=== PATIENT | female | born 1990 | race Caucasian/White ===

== ENCOUNTER 2022-08-09 20:58 | Emergency (ER) | payer OTHER, SELFPAY ==
[2022-08-09 21:02] VITALS: BP 180/86; RESP 30; TEMP 36.7; O2SAT 99; BMI 44.3
--- NOTE | 2022-08-09 21:10 | W.ED.ASTHMA ---
Documented by User: Walker Erwin MD 08/16/22 22:49 HPI - Asthma General: Chief Complaint: Asthma Stated Complaint: possible asthma attack Time Seen by Provider: 08/09/22 21:10 History of Present Illness: Ms. Everett is a 31-year-old female with significant past medical history of asthma who presents to the emergency department due to shortness of breath. She reports approximately 5 weeks now of worsening respiratory status despite 40 mg of oral steroids daily and treatments at home. Her current exacerbation has worsened over the past few hours and she has taken approximately 5 nebulizer treatments at home without significant relief. She notes palpitations and tachycardia in addition to breathless feeling. Denies specific infectious symptoms. Intensity symptoms is moderate to severe. Course has worsened. No other specific changes in health, exacerbating, or alleviating factors identified. Onset (ago): week(s) Severity: severe Associated symptoms: Reports no associated symptoms Asthma History: adult onset Review of Systems General: Reports: 10 or more systems reviewed and unremarkable except in HPI and below PFSH ED PFSH: Medical History (Updated 08/16/22 @ 22:47 by Walker Erwin MD) Asthma with acute exacerbation Social History (Updated 08/16/22 @ 22:47 by Walker Erwin MD) Smoking and tobacco status: never smoked Physical Exam Const: COMMON NORMALS: alert GENERAL APPEARANCE: cooperative, well developed and in distress HENMT: COMMON NORMALS: normocephalic and atraumatic HEAD & SCALP: normocephalic and atraumatic THROAT: posterior oropharynx normal Eye: COMMON NORMALS: conjunctivae normal CONJUNCTIVA: Yes conjunctivae normal SCLERA: sclerae normal Neck/C-Spine: COMMON NORMALS: supple GENERAL: Yes trachea midline Resp: EFFORT & INSPECTION: Yes tachypneic and Yes respiratory distress AUSCULTATION: wheezes and diminished lung sounds Cardio: COMMON NORMALS: regular rhythm RATE: tachycardic RHYTHM: regular rhythm GI: COMMON NORMALS: Soft to palpation PALPATION: Yes Soft to palpation and No Tenderness to palpation present (GI) PERCUSSION: normal to percussion Extremity: GENERAL: Yes normal exam except as noted and No edema Neuro: COMMON NORMALS: moves all extremities SENSORIUM/ORIENTATION: Yes alert and No Orientation impaired Psych: COMMON NORMALS: mental status grossly normal and Normal thought process present THOUGHT PROCESS: Normal thought process present Course Vital Signs: Vital signs: Vital Signs Temperature 98.0 F 08/09/22 21:02 Pulse Rate 98 08/09/22 23:44 Respiratory Rate 18 08/09/22 23:44 Blood Pressure 150/96 08/09/22 23:44 Pulse Oximetry 100 08/09/22 23:44 Oxygen Delivery Me thod 08/09/22 22:50 MDM - Asthma Medical Decision Making 31-year-old female presenting in respiratory distress. RT treatment and asthma exacerbation treatment ordered. Labs with psychosis which may be reactive or due to steroids, not evidence of dehydration on metabolic panel. Viral studies negative. Chest x-ray with no lobar consolidation or pneumothorax. Patient observed and did have return of some symptoms though not as intense. Repeat treatment ordered and patient care handed off to Dr. Muhammad pending reassessment for disposition. Patient presents with an asthma exacerbation she feels much improved here she is in no distress her wheezing is resolved I feel she is stable for discharge she is continue her steroids and follow-up with her junior graphic designer she understands agrees to plan. Medical Records I reviewed the patient's medical records. Lab Data I reviewed the patient's lab results. : 08/09/22 21:22 08/09/22 21:22 Radiology Impressions Chest X-Ray 08/09/22 21:15 IMPRESSION: No acute findings. Laboratory Results WBC 15.7 10^3/uL (4.0-10.0) H 08/09/22 21: RBC 4.79 10^6/uL (4.1-5.3) 08/09/22: Hgb 13.8 g/dL (11.5-15.3) 08/09/22: Hct 41.7 % (37.0-47.0) 08/09/22 21: MCV 87.1 fl (81-99) 08/09/22: MCH 28.8 pg (28.0-34.0) 08/09/22: MCHC 33.1 g/dL (30.0-36.0) 08/09/22: RDW 13.3 % (12.1-15.1) 08/09/22: Plt Count 305 10^3/cmm (130-400) 08/09/22: MPV 10.2 fL (7.4-10.4) 08/09/22 21: Neut % (Auto) 82.9 % 08/09/22 21: Lymph % (Auto) 9.9 % 08/09/22 21:22 [place] % (Auto) 4.2 % 08/09/22 21:22 Eos % (Auto) 0.0 % 08/09/22 21:22 Baso % (Auto) 0.4 % 08/09/22 21: Neut # (Auto) 12.99 10^3/uL (1.8-7.7) H 08/09/22 21: Lymph # (Auto) 1.6 10^3/uL (0.8-4.8) 08/09/22 21: [place] # (Auto) 0.7 10^3/uL (0.2-0.9) 08/09/22 21: Eos # (Auto) 0.0 10^3/uL (0.0-0.8) 08/09/22 21: Baso # (Auto) 0.1 10^3/uL (0.0-0.1) 08/09/22 21: Nucleated RBC % (auto) 0 % 08/09/22: Nucleated RBCs # 0.0 /100WBC 08/09/22 21: Sodium 138 mmol/L (136-145) 08/09/22 21: Potassium 3.9 mmol/L (3.5-5.1) 08/09/22: Chloride 102 mmol/L (98-107) 08/09/22: Carbon Dioxide 19 mmol/L (22-29) L 08/09/22 21: Anion Gap 20.9 (5-19) H 08/09/22 21: BUN 15 mg/dL (6-20) 08/09/22: Creatinine 0.8 mg/dL (0.5-0.9) 08/09/22: GFR Calculation 84.2 mL/min (90-130) L 08/09/22 21:22 Glucose 185 mg/dL (65-115) H 08/09/22 21: Calculated Osmolality 292 mOsm/kg (285-295) 08/09/22: Calcium 9.6 mg/dL (8.5-10.5) 08/09/22 21:22 Total Bilirubin 0.2 mg/dL (0.15-1.2) 08/09/22 21:22 AST 10 U/L (0-32) 08/09/22 21:22 ALT 24 U/L (0-33) 08/09/22 21:22 Alkaline Phosphatase 86 U/L (35-105) 08/09/22 21:22 Total Protein 7.1 g/dL (6.6-8.7) 08/09/22 21:22 Albumin 4.4 g/dL (3.5-5.2) 08/09/22 21:22 Globulin 2.7 g/dL (1.3-4.6) 08/09/22 21:22 Coronavirus 229E (PCR) Not detected (NOT DETECT) 08/09/22 21:35 SARS-CoV-2 (PCR) Not detected (NOT DETECT) 08/09/22 21:35 Discharge Plan Discharge Patient Disposition: Home Clinical Impression: Asthma with acute exacerbation Condition: Stable Prescriptions: New benzonatate 100 mg capsule 100 mg PO TID PRN (Reason: cough) Qty: 30 0RF Discharge Orders: Discharge ED (Routine); Ordered 08/09/22 Ordered By: Fermin Muhammad Discharge Diet: Usual diet Discharge Activity: Increase activity as tolerated Patient Instructions: Asthma Exacerbation - Adult Activity Restrictions/Additional Instructions: Thank you for visiting the emergency department. You were seen and evaluated for shortness of breath. The most likely cause of your symptoms is exacerbation of asthma. We are pleased that you had improvement in the emergency department. Please follow-up with your junior graphic designer. Return to the emergency department for worsening symptoms or anything else that you are concerned about a feel needs emergency department evaluation. Coding Level of Care Code ED Manager Marketing Communication for Chg Fwd Documented by User: Fermin Muhammad MD 08/09/22 23:34 HPI - Asthma General: Chief Complaint: Asthma Stated Complaint: possible asthma attack Time Seen by Provider: 08/09/22 21:10 PFSH ED PFSH: Medical History (Updated 08/16/22 @ 22:47 by Walker Erwin MD) Asthma with acute exacerbation Social History (Updated 08/16/22 @ 22:47 by Walker Erwin MD) Smoking and tobacco status: never smoked Course Vital Signs: Vital signs: Vital Signs Temperature 98.0 F 08/09/22 21:02 Pulse Rate 98 08/09/22 23:44 Respiratory Rate 18 08/09/22 23:44 Blood Pressure 150/96 08/09/22 23:44 Pulse Oximetry 100 08/09/22 23:44 Oxygen Delivery Me thod 08/09/22 22:50 MDM - Asthma Medical Decision Making Patient presents with an asthma exacerbation she feels much improved here she is in no distress her wheezing is resolved I feel she is stable for discharge she is continue her steroids and follow-up with her junior graphic designer she understands agrees to plan. Lab Data : 08/09/22 21:22 08/09/22 21:22 Radiology Impressions Chest X-Ray 08/09/22 21:15 IMPRESSION: No acute findings. Laboratory Results WBC 15.7 10^3/uL (4.0-10.0) H 08/09/22 21: RBC 4.79 10^6/uL (4.1-5.3) 08/09/22 21: Hgb 13.8 g/dL (11.5-15.3) 08/09/22 21: Hct 41.7 % (37.0-47.0) 08/09/22 21: MCV 87.1 fl (81-99) 08/09/22 21: MCH 28.8 pg (28.0-34.0) 08/09/22 21: MCHC 33.1 g/dL (30.0-36.0) 08/09/22: RDW 13.3 % (12.1-15.1) 08/09/22 21: Plt Count 305 10^3/cmm (130-400) 08/09/22 21: MPV 10.2 fL (7.4-10.4) 08/09/22: Neut % (Auto) 82.9 % 08/09/22 21: Lymph % (Auto) 9.9 % 08/09/22 21: [place] % (Auto) 4.2 % 08/09/22 21: Eos % (Auto) 0.0 % 08/09/22: Baso % (Auto) 0.4 % 08/09/22: Neut # (Auto) 12.99 10^3/uL (1.8-7.7) H 08/09/22 21: Lymph # (Auto) 1.6 10^3/uL (0.8-4.8) 08/09/22: [place] # (Auto) 0.7 10^3/uL (0.2-0.9) 08/09/22: Eos # (Auto) 0.0 10^3/uL (0.0-0.8) 08/09/22: Baso # (Auto) 0.1 10^3/uL (0.0-0.1) 08/09/22 21: Nucleated RBC % (auto) 0 % 08/09/22 21: Nucleated RBCs # 0.0 /100WBC 08/09/22 21: Sodium 138 mmol/L (136-145) 08/09/22 21: Potassium 3.9 mmol/L (3.5-5.1) 08/09/22: Chloride 102 mmol/L (98-107) 08/09/22: Carbon Dioxide 19 mmol/L (22-29) L 08/09/22: Anion Gap 20.9 (5-19) H 08/09/22 21: BUN 15 mg/dL (6-20) 08/09/22 21: Creatinine 0.8 mg/dL (0.5-0.9) 08/09/22 21: GFR Calculation 84.2 mL/min (90-130) L 08/09/22 21: Glucose 185 mg/dL (65-115) H 08/09/22 21: Calculated Osmolality 292 mOsm/kg (285-295) 08/09/22 21: Calcium 9.6 mg/dL (8.5-10.5) 08/09/22 21: Total Bilirubin 0.2 mg/dL (0.15-1.2) 08/09/22 21:22 AST 10 U/L (0-32) 08/09/22 21:22 ALT 24 U/L (0-33) 08/09/22 21:22 Alkaline Phosphatase 86 U/L (35-105) 08/09/22 21:22 Total Protein 7.1 g/dL (6.6-8.7) 08/09/22 21: Albumin 4.4 g/dL (3.5-5.2) 08/09/22 21: Globulin 2.7 g/dL (1.3-4.6) 08/09/22 21:22 Coronavirus 229E (PCR) Not detected (NOT DETECT) 08/09/22 21:35 SARS-CoV-2 (PCR) Not detected (NOT DETECT) 08/09/22 21:35 Discharge Plan Discharge Patient Disposition: Home Clinical Impression: Asthma with acute exacerbation Condition: Stable Prescriptions: New benzonatate 100 mg capsule 100 mg PO TID PRN (Reason: cough) Qty: 30 0RF Discharge Orders: Discharge ED (Routine); Ordered 08/09/22 Ordered By: Fermin Muhammad Discharge Diet: Usual diet Discharge Activity: Increase activity as tolerated Patient Instructions: Asthma Exacerbation - Adult Activity Restrictions/Additional Instructions: Thank you for visiting the emergency department. You were seen and evaluated for shortness of breath. The most likely cause of your symptoms is exacerbation of asthma. We are pleased that you had improvement in the emergency department. Please follow-up with your junior graphic designer. Return to the emergency department for worsening symptoms or anything else that you are concerned about a feel needs emergency department evaluation. Coding Level of Care Code ED Manager Marketing Communication for Kevin Iqbal
--- NOTE | 2022-08-09 21:15 | XRR_ITS ---
PROCEDURE INFORMATION: Exam: XR Chest Exam date and time: 08/09/2022 9:24 PM Age: 31 years old Clinical indication: Shortness of breath; Additional info: SOB TECHNIQUE: Imaging protocol: Radiologic exam of the chest. Views: 1 view. COMPARISON: No relevant prior studies available. FINDINGS: Lungs: Unremarkable. No consolidation. Pleural spaces: Unremarkable. No pleural effusion. No pneumothorax. Heart/Mediastinum: Unremarkable. No cardiomegaly. Bones/joints: Unremarkable. XR/XR chest 1V portable [id number] IMPRESSION: No acute findings.
[2022-08-09] MEDS: benzonatate 100 mg Capsule PO (21:32)
[2022-08-09] MEDS: sodium chloride 0.9% 1,000 ML 999 ML IV (21:32)
[2022-08-09] MEDS: magnesium sulfate premix 2 GM/50 ML PIGGYBACK IV (21:32)
[2022-08-09 21:33] VITALS: BP 182/92; PULSE 106; RESP 24; O2SAT 100
[2022-08-09] MEDS: ipratropium-albuterol 3 mL Neb INHALATION ×3 (21:35)
[2022-08-09 21:36] VITALS: PULSE 96; RESP 18; O2SAT 99
[2022-08-09 21:45] VITALS: PULSE 111
[2022-08-09 22:50] VITALS: BP 150/96; PULSE 100; PULSE 98; RESP 18; RESP 20; O2SAT 100
[2022-08-09] MEDS: levalbuterol 1.25 mg/3 mL Neb INHALATION (22:50)
[2022-08-09 23:11] LABS: Basophils # 0.1 10^3/uL (0.0-0.1); Basophils % 0.4 %; Hematocrit 41.7 % (37.0-47.0); Hemoglobin 13.8 g/dL (11.5-15.3); Lymphocytes # 1.6 10^3/uL (0.8-4.8); Lymphocytes % 9.9 %; Mean Corpuscular HGB Conc 33.1 g/dL (30.0-36.0); Mean Corpuscular Hemoglobin 28.8 pg (28.0-34.0); Mean Corpuscular Volume 87.1 fl (81-99); Mean Platelet Volume 10.2 fL (7.4-10.4); Monocytes # 0.7 10^3/uL (0.2-0.9); Monocytes % 4.2 %; Neutrophils # 12.99 10^3/uL (1.8-7.7); Neutrophils % 82.9 %; Nucleated Red Blood Cells % 0 %; Platelet Count 305 10^3/cmm (130-400); Red Blood Count 4.79 10^6/uL (4.1-5.3); Red Cell Distribution Width 13.3 % (12.1-15.1); White Blood Count 15.7 10^3/uL (4.0-10.0)
[2022-08-09 23:22] LABS: Adenovirus Not Detected (NOT DETECT); Chlamydia Pneumoniae Not Detected (NOT DETECT); Coronavirus 229E,HKU1,NL63,OC4 Not Detected (NOT DETECT); Human Metapneumovirus Not Detected (NOT DETECT); Human Rhinovirus/Enterovirus Not Detected (NOT DETECT); Influenza A Not Detected (NOT DETECT); Influenza A H1 Not Detected (NOT DETECT); Influenza A H1-2009 Not Detected (NOT DETECT); Influenza A H3 Not Detected (NOT DETECT); Influenza B Not Detected (NOT DETECT); Mycoplasma Pneumoniae Not Detected (NOT DETECT); Parainfluenza Virus Type 1 Not Detected (NOT DETECT); Parainfluenza Virus Type 2 Not Detected (NOT DETECT); Parainfluenza Virus Type 3 Not Detected (NOT DETECT); Parainfluenza Virus Type 4 Not Detected (NOT DETECT); Respiratory Syncytial Virus A Not Detected (NOT DETECT); Respiratory Syncytial Virus B Not Detected (NOT DETECT); SARS-COV-2 Not Detected (NOT DETECT)
[2022-08-09 23:27] LABS: Alanine Aminotransferase 24 U/L (0-33); Albumin Level 4.4 g/dL (3.5-5.2); Alkaline Phosphatase 86 U/L (35-105); Aspartate Amino Transferase 10 U/L (0-32); Blood Urea Nitrogen 15 mg/dL (6-20); Calcium 9.6 mg/dL (8.5-10.5); Carbon Dioxide 19 mmol/L (22-29); Chloride 102 mmol/L (98-107); Globulin 2.7 g/dL (1.3-4.6); Glomerular Filtration Rate 84.2 mL/min (90-130); Glucose 185 mg/dL (65-115); Osmolality Calculated 292 mOsm/kg (285-295); Sodium 138 mmol/L (136-145); Total Bilirubin 0.2 mg/dL (0.15-1.2); Total Protein 7.1 g/dL (6.6-8.7)
[2022-08-09 23:36] LABS: Anion Gap 20.9 (5-19); Potassium 3.9 mmol/L (3.5-5.1)
[2022-08-09 23:44] VITALS: BP 150/96; PULSE 98; RESP 18; O2SAT 100
== END 2022-08-09 23:47 | disposition home or self-care (01) ==
PROVIDERS: Emergency Medicine; Emergency Provider Emergency Medicine
DX: J45.901 Unspecified asthma with (acute) exacerbation (principal); Z20.822 Contact with and (suspected) exposure to COVID-19
CPT/HCPCS: 71045; 80053; 85025; 87635; 94640; 96365; 96375; 99284; J2930; J3475; J7030; J7614

== ENCOUNTER 2022-09-19 18:37 | Emergency (ER) | payer OTHER, SELFPAY ==
--- NOTE | 2022-09-19 18:39 | XRR_ITS ---
PROCEDURE INFORMATION: Exam: XR Chest Exam date and time: 09/19/2022 8:40 PM Age: 31 years old Clinical indication: Pain; Chest pressure; Additional info: Cp TECHNIQUE: Imaging protocol: Radiologic exam of the chest. Views: 1 view. COMPARISON: CR (CHEST, ) 08/09/2022 9:24 PM FINDINGS: Lungs: Lungs are clear bilaterally. Pleural spaces: No pleural effusion. No pneumothorax. Heart/Mediastinum: The cardiac silhouette and mediastinal contours are unremarkable. Bones/joints: Unremarkable for age. XR/XR chest 1V portable [id number] IMPRESSION: Negative chest radiograph.
[2022-09-19 18:59] VITALS: BP 180/131; PULSE 137; RESP 16; TEMP 36.5; O2SAT 100
--- NOTE | 2022-09-19 19:03 | ECG_ITS ---
[facility] Test Date: 2022-09-19 Pat Name: Meenu Everett Department: Room: Gender: Female Java Lead Architect: : 1990 Requested By: Fermin Muhammad Order Number: [id number] Terrell MD: Yuli Benavides M.D. Measurements Intervals [place] Rate: 131 P: 51 WA: 128 QRS: 60 QRSD: 93 T: 42 QT: 314 QTc: 464 Interpretive Statements SINUS TACHYCARDIA MODERATE ST DEPRESSION [0.05+ mV ST DEPRESSION] No previous ECG available for comparison Electronically Signed On 09-21-2022 13:42:05 MANAGER MUTUAL FUND by Yuli Benavides M.D. [id number]
[2022-09-19 19:34] VITALS: BP 182/97; PULSE 123; RESP 18; O2SAT 99
[2022-09-19 19:45] VITALS: BP 165/111; PULSE 112; RESP 18; O2SAT 97
[2022-09-19] MEDS: sodium chloride 0.9% 1,000 ML 999 ML IV (19:56)
[2022-09-19] MEDS: labetalol 5 mg/mL SDV 20mL 10 MG IVP (19:56)
[2022-09-19] MEDS: ondansetron 2 mg/ML SDV 2 mL 4 MG IVP (19:56)
[2022-09-19] MEDS: morphine 4 mg/mL SDV 1 mL IVP (19:56)
--- NOTE | 2022-09-19 19:57 | ECG_ITS ---
[facility] Test Date: 2022-09-19 Pat Name: Meenu Everett Department: Room: Gender: Female Territory Manager General Sales: : 1990 Requested By: Fermin Muhammad Order Number: [id number] Terrell MD: Yuli Benavides M.D. Measurements Intervals [place] Rate: 102 P: 42 MS: 156 QRS: 29 QRSD: 95 T: 26 QT: 323 QTc: 423 Interpretive Statements SINUS TACHYCARDIA ABNORMAL RHYTHM ECG No previous ECG available for comparison Electronically Signed On 09-21-2022 13:42:23 PRODUCTION INSPECTOR by Yuli Benavides M.D. [id number]
[2022-09-19 20:00] LABS: Basophils # 0.1 10^3/uL (0.0-0.1); Basophils % 0.5 %; Eosinophils # 0.1 10^3/uL (0.0-0.8); Eosinophils % 0.7 %; Hematocrit 39.5 % (37.0-47.0); Hemoglobin 13.4 g/dL (11.5-15.3); Lymphocytes # 2.9 10^3/uL (0.8-4.8); Lymphocytes % 27.8 %; Mean Corpuscular HGB Conc 33.9 g/dL (30.0-36.0); Mean Corpuscular Volume 85.5 fl (81-99); Mean Platelet Volume 9.8 fL (7.4-10.4); Monocytes # 0.6 10^3/uL (0.2-0.9); Monocytes % 5.5 %; Neutrophils # 6.76 10^3/uL (1.8-7.7); Neutrophils % 64.5 %; Nucleated Red Blood Cells % 0 %; Platelet Count 318 10^3/cmm (130-400); Red Blood Count 4.62 10^6/uL (4.1-5.3); Red Cell Distribution Width 14.2 % (12.1-15.1); White Blood Count 10.5 10^3/uL (4.0-10.0)
--- NOTE | 2022-09-19 20:07 | ED_ITS ---
HPI - Chest Pain General: Chief Complaint: Chest Pain Stated Complaint: Irregular HR, Chest pain, High bP Time Seen by Provider: 09/19/22 19:30 Source: patient Mode of arrival: ambulatory Limitations: no limitations History of Present Illness: 31-year-old female states she had COVID 2 weeks ago she had been on steroids states that over the last 2 days she has been having some chest pains along with shortness of breath and tachycardic. States not uncommon to have a tachycardia after steroids she does have a history of asthma states that her pain is a pressure type pain in the center of her chest. She is in no distress here. She is hypertensive as well. No vomiting no diarrhea Associated symptoms: Reports dyspnea and palpitations; Deny abdominal pain, fever(s), nausea or vomiting Review of Systems Const: Denies: fever(s), chills, body aches or change in appetite Eyes: Denies: blurry vision or eye discomfort ENMT: Denies: throat pain or dental pain Card: Reports: chest pain and palpitations Resp: Reports: dyspnea GI: Denies: abdominal pain, nausea, vomiting or diarrhea : Denies: dysuria Musc: Denies: neck pain or back pain Skin/Breast: Denies: rash Neuro: Denies: headache(s) Psych: Denies: depression [place]/Lymph: Denies: easy bruising All/Imm: Denies: urticaria PFSH ED PFSH: Medical History Asthma with acute exacerbation Social History Smoking and tobacco status: never smoked Physical Exam Const: COMMON NORMALS: no acute distress, patient oriented x3 and healthy appearing HENMT: COMMON NORMALS: normocephalic and atraumatic HEAD & SCALP: normoce phalic and atraumatic Eye: COMMON NORMALS: Equal, round and reactive pupils present and EOMs intact bilaterally PUPIL: Yes Equal, round and reactive pupils present Neck/C-Spine: COMMON NORMALS: full ROM and supple Chest: COMMONS NORMALS: normal inspection of the chest and normal palpation of entire chest wall Resp: COMMON NORMALS: normal respiratory effort, No retractions, No use of accessory muscles and clear to auscultation bilaterally AUSCULTATION: clear to auscultation bilaterally Cardio: COMMON NORMALS: regular rhythm and No murmurs present (Cardio) RATE: bradycardic RHYTHM: regular rhythm GI: COMMON NORMALS: Normal to inspection, nondistended, normoactive bowel sounds present, Soft to palpation, non-tender and no masses PALPATION: Yes Soft to palpation Extremity: COMMON NORMALS: normal to inspection and full ROM Neuro: COMMON NORMALS: patient oriented x3, moves all extremities and no focal motor deficits Psych: COMMON NORMALS: mental status grossly normal, Normal thought process present and cooperative THOUGHT PROCESS: Normal thought process present Skin: COMMON NORMALS: no rashes or lesions noted and no wounds GENERAL SKIN EXAM: no rashes or lesions noted Course Vital Signs: Vital signs: Vital Signs Temperature 97.7 F 09/19/22 18:59 Pulse Rate 112 H 09/19/22 19:45 Respiratory Rate 18 09/19/22 19:45 Blood Pressure 165/111 09/19/22 19:45 Pulse Oximetry 97 09/19/22 19:45 Oxygen Delivery Me thod 09/19/22 19:34 MDM - Chest Pain Medical Decision Making Patient presents here with chest pain she does have hypertension as well could be post COVID her D-dimer is negative she has no signs of PE her troponin is normal patient stable for discharge she is to follow-up with PCP and return if worsening. Lab Data 09/19/22 19:55 09/19/22 19:55 Radiology Impressions Chest X-Ray 09/19/22 18:39 IMPRESSION: Negative chest radiograph. Laboratory Results WBC 10.5 10^3/uL (4.0-10.0) H 09/19/22 19:55 RBC 4.62 10^6/uL (4.1-5.3) 09/19/22 19:55 Hgb 13.4 g/dL (11.5-15.3) 09/19/22 19:55 Hct 39.5 % (37.0-47.0) 09/19/22 19:55 MCV 85.5 fl (81-99) 09/19/22 19:55 MCH 29.0 pg (28.0-34.0) 09/19/22 19:55 MCHC 33.9 g/dL (30.0-36.0) 09/19/22 19:55 RDW 14.2 % (12.1-15.1) 09/19/22 19:55 Plt Count 318 10^3/cmm (130-400) 09/19/22 19:55 MPV 9.8 fL (7.4-10.4) 09/19/22 19:55 Neut % (Auto) 64.5 % 09/19/22 19:55 Lymph % (Auto) 27.8 % 09/19/22 19:55 [place] % (Auto) 5.5 % 09/19/22 19:55 Eos % (Auto) 0.7 % 09/19/22 19:55 Baso % (Auto) 0.5 % 09/19/22 19:55 Neut # (Auto) 6.76 10^3/uL (1.8-7.7) 09/19/22 19:55 Lymph # (Auto) 2.9 10^3/uL (0.8-4.8) 09/19/22 19:55 [place] # (Auto) 0.6 10^3/uL (0.2-0.9) 09/19/22 19:55 Eos # (Auto) 0.1 10^3/uL (0.0-0.8) 09/19/22 19:55 Baso # (Auto) 0.1 10^3/uL (0.0-0.1) 09/19/22 19:55 Nucleated RBC % (auto) 0 % 09/19/22 19:55 Nucleated RBCs # 0.0 /100WBC 09/19/22 19:55 D-Dimer <= 0.27 ug/mIFEU (0-0.59) 09/19/22 19:55 Sodium 131 mmol/L (136-145) L 09/19/22 19:55 Potassium 3.6 mmol/L (3.5-5.1) 09/19/22 19:55 Chloride 93 mmol/L (98-107) L 09/19/22 19:55 Carbon Dioxide 25 mmol/L (22-29) 09/19/22 19:55 Anion Gap 16.6 (5-19) 09/19/22 19:55 BUN 12 mg/dL (6-20) 09/19/22 19:55 Creatinine 0.9 mg/dL (0.5-0.9) 09/19/22 19:55 GFR Calculation 73.5 mL/min (90-130) L 09/19/22 19:55 Glucose 136 mg/dL (65-115) H 09/19/22 19:55 Calculated Osmolality 274 mOsm/kg (285-295) L 09/19/22 19:55 Calcium 9.5 mg/dL (8.5-10.5) 09/19/22 19:55 Total Bilirubin 0.3 mg/dL (0.15-1.2) 09/19/22 19:55 AST 14 U/L (0-32) 09/19/22 19:55 ALT 21 U/L (0-33) 09/19/22 19:55 Alkaline Phosphatase 87 U/L (35-105) 09/19/22 19:55 Troponin T Baseline 6 ng/L (0-10) 09/19/22 19:55 NT-Pro-B Natriuret Pep 5 pg/mL (0-125) 09/19/22 19:55 Total Protein 6.9 g/dL (6.6-8.7) 09/19/22 19:55 Albumin 4.4 g/dL (3.5-5.2) 09/19/22 19:55 Globulin 2.5 g/dL (1.3-4.6) 09/19/22 19:55 EKG Data EKG 1: I personally reviewed and interpreted this EKG as follows: EKG interpretation date: 09/19/22 EKG interpretation time: 19:57 Interpretation: sinus tach hr [address] or t wave abnormalities qrs 95 qtc 382 Discharge Plan Discharge Patient Disposition: Home Clinical Impression: Chest pain, Hypertension Condition: Stable Prescriptions: No Action benzonatate 100 mg capsule 100 mg PO TID PRN (Reason: cough) Qty: 30 0RF Discharge Orders: Discharge ED (Routine); Ordered 09/19/22 Ordered By: Fermin Muhammad Referrals: Berta Simon APRN [Primary Care Provider] - Discharge Diet: Advance as tolerated Discharge Activity: Resume usual activity Patient Instructions: Chest Pain (ED) Coding Level of Care Code ED Physician Practice Consultant for Chg Fwd Exam Comprehensive
[2022-09-19 20:19] LABS: D Dimer <= 0.27 ug/mIFEU (0-0.59)
[2022-09-19 20:23] LABS: Troponin(5th) Baseline 6 ng/L (0-10)
[2022-09-19 20:57] LABS: Alanine Aminotransferase 21 U/L (0-33); Albumin Level 4.4 g/dL (3.5-5.2); Alkaline Phosphatase 87 U/L (35-105); Anion Gap 16.6 (5-19); Aspartate Amino Transferase 14 U/L (0-32); Blood Urea Nitrogen 12 mg/dL (6-20); Calcium 9.5 mg/dL (8.5-10.5); Carbon Dioxide 25 mmol/L (22-29); Chloride 93 mmol/L (98-107); Creatinine Clr Calc Pharmacy 137.1599; Globulin 2.5 g/dL (1.3-4.6); Glomerular Filtration Rate 73.5 mL/min (90-130); Glucose 136 mg/dL (65-115); NT Pro B Type Natriuretic Pept 5 pg/mL (0-125); Osmolality Calculated 274 mOsm/kg (285-295); Potassium 3.6 mmol/L (3.5-5.1); Sodium 131 mmol/L (136-145); Total Bilirubin 0.3 mg/dL (0.15-1.2); Total Protein 6.9 g/dL (6.6-8.7)
[2022-09-19 21:16] VITALS: BP 143/105; RESP 18; O2SAT 99
== END 2022-09-19 21:16 | disposition home or self-care (01) ==
PROVIDERS: Emergency Provider Emergency Medicine; PCP Nurse Practitioner Family
DX: R07.9 Chest pain, unspecified (principal); I10 Essential (primary) hypertension
CPT/HCPCS: 71045; 80053; 83880; 84484; 85025; 85378; 93005; 96374; 96375; 99285; J2270; J2405; J3490; J7030

== ENCOUNTER 2024-02-03 19:56 | Emergency (ER) | payer OTHER, SELFPAY ==
[2024-02-03 20:00] VITALS: BP 144/87; PULSE 91; RESP 18; TEMP 36.6; O2SAT 100; BMI 30.7
[2024-02-03 20:22] LABS: Basophils % 0.7 %; Eosinophils # 0.1 10^3/uL (0.0-0.8); Eosinophils % 1.1 %; Hematocrit 36.1 % (36-47); Lymphocytes # 2.2 10^3/uL (0.8-4.8); Lymphocytes % 35.5 %; Mean Corpuscular HGB Conc 33.2 g/dL (30-55); Mean Corpuscular Hemoglobin 29.1 pg (27-33); Mean Corpuscular Volume 87.6 fl (85-98); Mean Platelet Volume 11.5 fL (7.4-10.4); Monocytes # 0.3 10^3/uL (0.2-0.9); Monocytes % 5.4 %; Neutrophils # 3.51 10^3/uL (1.8-7.7); Neutrophils % 57.1 %; Nucleated Red Blood Cells % 0 %; Platelet Count 211 10^3/cmm (157-399); Red Blood Count 4.12 10^6/uL (3.85-5.65); Red Cell Distribution Width 13.8 % (12.1-15.1); White Blood Count 6.14 10^3/uL (3.29-11.43)
[2024-02-03 20:45] LABS: Add Urine Microscopic? YES; Bilirubin Urine Neg (Negative); Blood Urine 3+ (Negative); Glucose Urine UA Norm (Normal); Ketones Urine Negative (Negative); Leukocyte Esterase Urine Negative (Negative); Nitrate Urine Negative (Negative); Protein Urine Trace (Negative); Specific Gravity, Urine 1.005 (1.005-1.030); Urine Appearance Clear (CLEAR); Urine Color Yellow (Yellow); Urobilinogen Urine Neg (Negative); pH Urine 7 (5-7)
[2024-02-03 20:46] LABS: Add Urine Culture? Yes; Bacteria Urine TRACE /hpf; RBC Urine 40-50 /hpf (0-2)
--- NOTE | 2024-02-03 20:49 | W.ED.FEMALGU ---
HPI - Female Genitourinary General: Chief complaint: Vaginal Bleeding Stated complaint: Vag bleeding, 6 weeks preg Time Seen by Provider: 02/03/24 20:11 History of Present Illness: Patient presents to the ER with painless bright red vaginal bleeding. Patient is approximately 6 weeks at this moment. Patient is with 1 miscarriage. Patient says she saturated 1 panty liner and had to tire changer aircraft to a regular pad but does not feel this is as heavy as her. Menstrual bleeding as that is heavy. Patient has had a D&C in the past and thought she was infertile for the last 6 years prior to the current . Related Data: : 4 Review of Systems General: Reports: 10 or more systems reviewed and unremarkable except in HPI and below PFSH ED PFSH: Medical History Asthma with acute exacerbation Social History Smoking and tobacco/nicotine status: never used tobacco/nicotine Female Reproductive History: : 4 Physical Exam Const: COMMON NORMALS: no acute distress, average body habitus, patient oriented x3, no limitations, healthy appearing, alert and well nourished HENMT: COMMON NORMALS: normocephalic, atraumatic, hearing grossly normal bilaterally, external ears normal, Normal external nose present, moist oral mucous membranes and oropharynx normal HEAD & SCALP: normocephalic and atraumatic NOSE: Normal external nose present EXTERNAL EAR: Yes external ears normal Neck/C-Spine: COMMON NORMALS: no JVD Chest: COMMONS NORMALS: normal inspection of the chest and normal palpation of entire chest wall Resp: COMMON NORMALS: normal respiratory effort, No retractions, No use of accessory muscles and clear to auscultation bilaterally AUSCULTATION: clear to auscultation bilaterally Cardio: COMMON NORMALS: no JVD, regular rate, regular rhythm, S1 normal heart sound present, S2 normal heart sound present, No gallops present (Cardio), No clicks present (Cardio), No murmurs present (Cardio) and No rub (Cardio) RATE: regular rate RHYTHM: regular rhythm HEART SOUNDS: S1 normal heart sound present and S2 normal heart sound present GI: COMMON NORMALS: Normal to inspection, nondistended, normoactive bowel sounds present, Soft to palpation, non-tender, No hepatosplenomegaly present and no masses PALPATION: Yes Soft to palpation and Yes No hepatosplenomegaly present Neuro: COMMON NORMALS: patient oriented x3 SENSORIUM/ORIENTATION: Yes alert Course Vital Signs: Vital signs: Vital Signs Temperature 97.8 F 02/03/24 20:00 Pulse Rate 91 02/03/24 20:00 Respiratory Rate 18 02/03/24 20:00 Blood Pressure 144/87 02/03/24 20:00 Pulse Oximetry 100 02/03/24 20:00 MDM - Female Medical Decision Making Patient lab work as well as ultrasound. Ultrasound showed fetus for 5 weeks and 6 days with a subchorionic hematoma these results was discussed with the patient. Patient be discharged from the ER to follow-up with her TRAVELING INVENTORY ASSOCIATE with suggested repeat ultrasound within next 1 to 2 weeks or sooner if more bleeding happens. Differential Diagnosis Unlikely abdominal pain, acute appendicitis, calculus of kidney, constipation, diverticulitis, endometriosis, gastroenteritis, pancreatitis or small bowel obstruction Medical Records I reviewed the patient's medical records. Lab Data I reviewed the patient's lab results. 02/03/24 20:16 02/03/24 20:16 Radiology Impressions Obstetrics Ultrasound 02/03/24 21:16 IMPRESSION: 1. Single living intrauterine fetus, 5 weeks, 6 days estimated age. 2. Probable subchorionic hematoma adjacent to the gestational sac, measuring 28 x 16 x 27 mm. 3. Suspect a small uterine fibroid, details above. 4. Small complex cyst in the right ovary, measuring 21 x 18 mm, possibly corpus luteum. 5. Other details discussed above. Laboratory Results WBC 6.14 10^3/uL (3.29-11.43) 02/03/24 20:16 RBC 4.12 10^6/uL (3.85-5.65) 02/03/24 20:16 Hgb 12.00 g/dL (11.27-16.99) 02/03/24 20:16 Hct 36.1 % (36-47) 02/03/24 20:16 MCV 87.6 fl (85-98) 02/03/24 20:16 MCH 29.1 pg (27-33) 02/03/24 20:16 MCHC 33.2 g/dL (30-55) 02/03/24 20:16 RDW 13.8 % (12.1-15.1) 02/03/24 20:16 Plt Count 211 10^3/cmm (157-399) 02/03/24 20:16 MPV 11.5 fL (7.4-10.4) H 02/03/24 20:16 Neut % (Auto) 57.1 % 02/03/24 20:16 Lymph % (Auto) 35.5 % 02/03/24 20:16 [place] % (Auto) 5.4 % 02/03/24 20:16 Eos % (Auto) 1.1 % 02/03/24 20:16 Baso % (Auto) 0.7 % 02/03/24 20:16 Neut # (Auto) 3.51 10^3/uL (1.8-7.7) 02/03/24 20:16 Lymph # (Auto) 2.2 10^3/uL (0.8-4.8) 02/03/24 20:16 [place] # (Auto) 0.3 10^3/uL (0.2-0.9) 02/03/24 20:16 Eos # (Auto) 0.1 10^3/uL (0.0-0.8) 02/03/24 20:16 Baso # (Auto) 0.0 10^3/uL (0.0-0.1) 02/03/24 20:16 Nucleated RBC % (auto) 0 % 02/03/24 20:16 Nucleated RBCs # 0.0 /100WBC 02/03/24 20:16 Sodium 142 mmol/L (136-145) 02/03/24 20:16 Potassium 3.1 mmol/L (3.5-5.1) L 02/03/24 20:16 Chloride 108 mmol/L (98-107) H 02/03/24 20:16 Carbon Dioxide 23 mmol/L (22-29) 02/03/24 20:16 Anion Gap 14.1 (5-19) 02/03/24 20:16 BUN 8 mg/dL (6-20) 02/03/24 20:16 Creatinine 0.6 mg/dL (0.5-0.9) 02/03/24 20:16 GFR Calculation 115.9 mL/min (90-130) 02/03/24 20:16 Glucose 128 mg/dL (65-115) H 02/03/24 20:16 Calculated Osmolality 294 mOsm/kg (285-295) 02/03/24 20:16 Calcium 9.2 mg/dL (8.5-10.5) 02/03/24 20:16 Total Bilirubin 0.3 mg/dL (0.15-1.2) 02/03/24 20:16 AST 12 U/L (0-32) 02/03/24 20:16 ALT 9 U/L (0-33) 02/03/24 20:16 Alkaline Phosphatase 107 U/L (35-105) H 02/03/24 20:16 Total Protein 6.4 g/dL (6.6-8.7) L 02/03/24 20:16 Albumin 4.2 g/dL (3.5-5.2) 02/03/24 20:16 Globulin 2.2 g/dL (1.3-4.6) 02/03/24 20:16 Ser , Semi-Qnt 80273.00 mIU/mL 02/03/24 20:16 Urine Color Yellow (Yellow) 02/03/24 20:30 Urine Appearance Clear (CLEAR) 02/03/24 20:30 Urine pH 7 (5-7) 02/03/24 20:30 Ur Specific [place] 1.005 (1.005-1.030) 02/03/24 20:30 Urine Protein Trace (Negative) 02/03/24 20:30 Urine Glucose (UA) Norm (Normal) 02/03/24 20:30 Urine Ketones Negative (Negative) 02/03/24 20: Urine Blood 3+ (Negative) H 02/03/24 20:30 Urine Nitrate Negative (Negative) 02/03/24 20:30 Urine Bilirubin Neg (Negative) 02/03/24 20:30 Urine Urobilinogen Neg mg/dL (Negative) 02/03/24 20:30 Ur Leukocyte Esterase Negative (Negative) 02/03/24 20:30 Urine RBC 40-50 /hpf (0-2) H 02/03/24 20:30 Urine WBC 5-10 /hpf (0-5) H 02/03/24 20:30 Ur Squamous Epith Cells 5-10 /hpf (0-5) H 02/03/24 20:30 Amorphous Sediment Not Reportable 02/03/24 20:30 Urine Bacteria Trace /hpf (NONE) 02/03/24 20:30 Blood Type B Positive 02/03/24 20:16 Rho(D) Type Rh positive 02/03/24 20:16 Antibody Screen Negative 02/03/24 20:16 All radiology interpretation(s) finalized by discharge Discharge Plan Discharge Patient Disposition: Home Clinical Impression: Hemorrhage affecting in first trimester Clinical Impression: (Ruled Out): Missed Condition: Stable Prescriptions: No Action benzonatate 100 mg capsule 100 mg PO TID PRN (Reason: cough) Qty: 30 0RF Discharge Orders: Discharge ED (Routine); Ordered 02/03/24 Ordered By: Rhett Conrad Patient Instructions: (ED) Activity Restrictions/Additional Instructions: He had lab work and ultrasound. Your ultrasound showed intrauterine with gestational age of approximately 5 weeks and 6 days. But it also showed a subchorionic hemorrhage. Please follow-up with your TRAVELING INVENTORY ASSOCIATE within next 1 to 2 weeks for reevaluation of this which may include ultrasound. If bleeding continues or worsens please feel free to return to the ER. Coding Level of Care Code ED Roller Print Tender for Kevin Iqbal
[2024-02-03 20:52] LABS: Alanine Aminotransferase 9 U/L (0-33); Albumin Level 4.2 g/dL (3.5-5.2); Alkaline Phosphatase 107 U/L (35-105); Anion Gap 14.1 (5-19); Aspartate Amino Transferase 12 U/L (0-32); Blood Urea Nitrogen 8 mg/dL (6-20); Calcium 9.2 mg/dL (8.5-10.5); Carbon Dioxide 23 mmol/L (22-29); Chloride 108 mmol/L (98-107); Creatinine Clr Calc Pharmacy 159.3546; Globulin 2.2 g/dL (1.3-4.6); Glomerular Filtration Rate 115.9 mL/min (90-130); Glucose 128 mg/dL (65-115); Osmolality Calculated 294 mOsm/kg (285-295); Potassium 3.1 mmol/L (3.5-5.1); Sodium 142 mmol/L (136-145); Total Bilirubin 0.3 mg/dL (0.15-1.2); Total Protein 6.4 g/dL (6.6-8.7)
--- NOTE | 2024-02-03 21:16 | USR_ITS ---
PROCEDURE INFORMATION: Exam: US First Trimester, Transabdominal and US , Transvaginal Exam date and time: 02/03/2024 10:16 PM Age: 33 years old Clinical indication: Lmp or gestational age (in weeks): 5w6d; Antepartum complications; Bleeding; ; Prior surgery; Surgery date: 6+ months; Surgery type: D&c 2018; Additional info: Approx 6 week gest, vaginal bleeding LABS AND CLINICAL REPORTS: Choriogonadotropin in serum (Serum HCG): 32063 mIU/mL Last menstrual period start date: 12/20/2023 Gestational age (Established): 6 w 2 d Estimated due date (Established): 09/26/2024 TECHNIQUE: Imaging protocol: Real-time transabdominal obstetrical ultrasound of the maternal pelvis and a first trimester , less than 14 weeks 0 days, with image documentation. Transvaginal imaging was used for better evaluation of the fetus, adnexa, and/or cervix. COMPARISON: No relevant prior studies available. FINDINGS: Single living intrauterine fetus. [address] rump length of 2.7 mm estimates age at 5 weeks, 6 days. heart activity documented by the technologist, 96 bpm. This is slightly slower than expected, but still may be normal at this early stage of gestation. Follow-up may be useful, as clinically directed. Amniotic fluid appears adequate for gestation. Suspect a 15 x 11 x 14 mm subserosal fibroid extending from the anterior left uterus. Probable subchorionic hematoma adjacent to the gestational sac, measuring 28 x 16 x 27 mm. An additional uterine fibroid is probably less likely. Small complex cyst in the right ovary, measuring 21 x 18 mm, possibly corpus luteum. Maternal ovaries/adnexa otherwise appear essentially unremarkable. Blood flow detected in each ovary. The urinary bladder was not completely evaluated/imaged at this time. Endovaginal scanning provided better visualization/evaluation of the gestational sac and contents, and adnexal regions, as discussed above. US/US OB <=14 wk fetus w transvag IMPRESSION: 1. Single living intrauterine fetus, 5 weeks, 6 days estimated age. 2. Probable subchorionic hematoma adjacent to the gestational sac, measuring 28 x 16 x 27 mm. 3. Suspect a small uterine fibroid, details above. 4. Small complex cyst in the right ovary, measuring 21 x 18 mm, possibly corpus luteum. 5. Other details discussed above.
== END 2024-02-03 23:57 | disposition home or self-care (01) ==
PROVIDERS: Emergency Provider Emergency Medicine
DX: O20.9 Hemorrhage in early pregnancy, unspecified (principal); Z3A.01 Less than 8 weeks gestation of pregnancy
CPT/HCPCS: 36415; 76801; 76817; 80053; 81001; 84702; 85025; 86850; 86900; 87086; 99284

== ENCOUNTER → 2024-02-09 07:59 | Outpatient (BNVA) | payer OTHER, SELFPAY | PROVIDERS: Visit Provider Nurse Practitioner Women's Health | DX: N92.6 Irregular menstruation, unspecified (principal); O20.9 Hemorrhage in early pregnancy, unspecified | CPT/HCPCS: 81025; 84702; 85025 ==

== ENCOUNTER → 2024-02-10 07:54 | Outpatient (BNVA) | payer OTHER, SELFPAY | PROVIDERS: Visit Provider Nurse Practitioner Women's Health | DX: Z36.87 Encounter for antenatal screening for uncertain dates (principal) | CPT/HCPCS: 76817 ==

== ENCOUNTER → 2024-02-15 13:29 | Outpatient (BNVA) | payer OTHER, SELFPAY | PROVIDERS: Visit Provider Nurse Practitioner Women's Health | DX: O03.9 Complete or unspecified spontaneous abortion without complication (principal) | CPT/HCPCS: 76817; 84702 ==

== ENCOUNTER → 2024-02-22 13:26 | Outpatient (BNVA) | payer OTHER, SELFPAY | PROVIDERS: Visit Provider Nurse Practitioner Women's Health | DX: O20.9 Hemorrhage in early pregnancy, unspecified (principal) | CPT/HCPCS: 84702 ==

== ENCOUNTER 2024-02-25 14:56 | Emergency (ER) | payer OTHER, SELFPAY ==
[2024-02-25 15:04] VITALS: BP 135/87; PULSE 72; RESP 16; TEMP 36.6; O2SAT 100; BMI 30.4
[2024-02-25 16:26] LABS: Basophils % 0.7 %; Eosinophils # 0.1 10^3/uL (0.0-0.8); Eosinophils % 0.9 %; Hematocrit 34.9 % (36-47); Lymphocytes # 2.1 10^3/uL (0.8-4.8); Lymphocytes % 36.2 %; Mean Corpuscular HGB Conc 31.8 g/dL (30-55); Mean Corpuscular Hemoglobin 29.2 pg (27-33); Mean Corpuscular Volume 91.8 fl (85-98); Mean Platelet Volume 11.7 fL (7.4-10.4); Monocytes # 0.3 10^3/uL (0.2-0.9); Monocytes % 5.1 %; Neutrophils # 3.22 10^3/uL (1.8-7.7); Neutrophils % 56.9 %; Nucleated Red Blood Cells % 0 %; Platelet Count 202 10^3/cmm (157-399); Red Cell Distribution Width 12.9 % (12.1-15.1); White Blood Count 5.66 10^3/uL (3.29-11.43)
[2024-02-25 17:13] LABS: Alanine Aminotransferase 7 U/L (0-33); Albumin Level 3.8 g/dL (3.5-5.2); Alkaline Phosphatase 95 U/L (35-105); Anion Gap 12.5 (5-19); Aspartate Amino Transferase 10 U/L (0-32); Blood Urea Nitrogen 9 mg/dL (6-20); Calcium 8.4 mg/dL (8.5-10.5); Carbon Dioxide 23 mmol/L (22-29); Chloride 111 mmol/L (98-107); Creatinine Clr Calc Pharmacy 190.5034; Globulin 2.4 g/dL (1.3-4.6); Glucose 93 mg/dL (65-115); Osmolality Calculated 294 mOsm/kg (285-295); Potassium 3.5 mmol/L (3.5-5.1); Sodium 143 mmol/L (136-145); Total Bilirubin 0.2 mg/dL (0.15-1.2); Total Protein 6.2 g/dL (6.6-8.7)
--- NOTE | 2024-02-25 19:01 | ED_ITS ---
HPI - Female Genitourinary 2 General: Chief complaint: Vaginal Bleeding Stated complaint: heavy bleeding sent by [facility] Time Seen by Provider: 02/25/24 18:48 History of Present Illness: 33-year-old female who presents the [facility] room from [facility]. She had a miscarriage about 10 days ago and has had continued vaginal bleeding. She has a history of a gastric bypass and so is usually anemic. She has had ultrasounds and has been receiving care for the miscarriage from [facility] but given her level of bleeding that were frayed she might be anemic to the point of needing transfusion. She is having 1 pad an hour bleeding. She is felt somewhat lightheaded and dizzy at times. No abdominal pain. No fevers. She has had ultrasounds at the clinic. Date of Last Menstrual Period: 12/21/23 Review of Systems 2 Narrative: Constitutional symptoms: Negative except as documented in HPI. Skin symptoms: Negative except as documented in HPI. Eye symptoms: Negative except as documented in HPI. ENMT symptoms: Negative except as documented in HPI. Respiratory symptoms: Negative except as documented in HPI. Cardiovascular symptoms: Negative except as documented in HPI. Gastrointestinal symptoms: Negative except as documented in HPI. Genitourinary symptoms: Negative except as documented in HPI. Musculoskeletal symptoms: Negative except as documented in HPI. Neurologic symptoms: Negative except as documented in HPI. Psychiatric symptoms: Negative except as documented in HPI. Endocrine symptoms: Negative except as documented in HPI. PFSH ED 2 PFSH: Medical History Asthma with acute exacerbation Family History Denies family history of Colon cancer Ovarian cancer Diabetes Heart disease Breast cancer Hypertension Uterine cancer Thyroid disease Stroke Social History Smoking and tobacco/nicotine status: never used tobacco/nicotine Female Reproductive History: Date of last menstrual period: 12/21/23 Physical Exam 2 Narrative: EXAM NARRATIVE: General: Alert, no acute distress. Skin: warm and dry Head: Normocephalic Neck: Trachea midline Eye: Extraocular movements are intact. Ears, nose, mouth and throat: Oral mucosa moist Respiratory: Respirations are non-labored Musculoskeletal: Normal ROM Neurological: Alert and oriented to person, place, time, and situation, No focal neurological deficit observed. Psychiatric: Cooperative, appropriate mood & affect. Course 2 Vital Signs: Vital signs: Vital Signs Temperature 98 F 02/25/24 15:04 Pulse Rate 72 02/25/24 15:04 Respiratory Rate 16 02/25/24 15:04 Blood Pressure 135/87 02/25/24 15:04 Pulse Oximetry 100 02/25/24 15:04 Oxygen Delivery Me thod Room Air 02/25/24 15:04 MDM - Female Medical Decision Making Medical decision making: Differential diagnosis including but not limited to and based on the above HPI, review of systems and physical exam: Concern for anemia secondary to bleeding. Orders placed to evaluate differential diagnosis based on the above differential, HPI and physical exam Lab Review: Laboratory results were reviewed and interpreted by myself the emergency room physician. Hemoglobin is 11.1 today. This is stable she was 12.2 recently. Definitely not to the point of needing a transfusion. I reviewed the patient's medical record. Assessment and plan: Miscarriage, vaginal bleeding - Discharged home - Discussed plan with patient. Answered any questions. - Evaluation and treatment of this problem were appropriate in the emergency setting. Lab Data 02/25/24 16:06 02/25/24 16:06 Laboratory Results WBC 5.66 10^3/uL (3.29-11.43) 02/25/24 16:06 RBC 3.80 10^6/uL (3.85-5.65) L 02/25/24 16:06 Hgb 11.10 g/dL (11.27-16.99) L 02/25/24 16:06 Hct 34.9 % (36-47) L 02/25/24 16:06 MCV 91.8 fl (85-98) 02/25/24 16:06 MCH 29.2 pg (27-33) 02/25/24 16:06 MCHC 31.8 g/dL (30-55) 02/25/24 16:06 RDW 12.9 % (12.1-15.1) 02/25/24 16:06 Plt Count 202 10^3/cmm (157-399) 02/25/24 16:06 MPV 11.7 fL (7.4-10.4) H 02/25/24 16:06 Neut % (Auto) 56.9 % 02/25/24 16:06 Lymph % (Auto) 36.2 % 02/25/24 16:06 [place] % (Auto) 5.1 % 02/25/24 16:06 Eos % (Auto) 0.9 % 02/25/24 16:06 Baso % (Auto) 0.7 % 02/25/24 16:06 Neut # (Auto) 3.22 10^3/uL (1.8-7.7) 02/25/24 16:06 Lymph # (Auto) 2.1 10^3/uL (0.8-4.8) 02/25/24 16:06 [place] # (Auto) 0.3 10^3/uL (0.2-0.9) 02/25/24 16:06 Eos # (Auto) 0.1 10^3/uL (0.0-0.8) 02/25/24 16:06 Baso # (Auto) 0.0 10^3/uL (0.0-0.1) 02/25/24 16:06 Nucleated RBC % (auto) 0 % 02/25/24 16:06 Nucleated RBCs # 0.0 /100WBC 02/25/24 16:06 Sodium 143 mmol/L (136-145) 02/25/24 16:06 Potassium 3.5 mmol/L (3.5-5.1) 02/25/24 16:06 Chloride 111 mmol/L (98-107) H 02/25/24 16:06 Carbon Dioxide 23 mmol/L (22-29) 02/25/24 16:06 Anion Gap 12.5 (5-19) 02/25/24 16:06 BUN 9 mg/dL (6-20) 02/25/24 16:06 Creatinine 0.5 mg/dL (0.5-0.9) 02/25/24 16:06 GFR Calculation 143.0 mL/min (90-130) H 02/25/24 16:06 Glucose 93 mg/dL (65-115) 02/25/24 16:06 Calculated Osmolality 294 mOsm/kg (285-295) 02/25/24 16:06 Calcium 8.4 mg/dL (8.5-10.5) L 02/25/24 16:06 Total Bilirubin 0.2 mg/dL (0.15-1.2) 02/25/24 16:06 AST 10 U/L (0-32) 02/25/24 16:06 ALT 7 U/L (0-33) 02/25/24 16:06 Alkaline Phosphatase 95 U/L (35-105) 02/25/24 16:06 Total Protein 6.2 g/dL (6.6-8.7) L 02/25/24 16:06 Albumin 3.8 g/dL (3.5-5.2) 02/25/24 16:06 Globulin 2.4 g/dL (1.3-4.6) 02/25/24 16:06 Ser , Semi-Qnt 5761.00 mIU/mL 02/25/24 16:06 No radiology studies performed this visit Discharge Plan Discharge Patient Disposition: Home Clinical Impression: Miscarriage, Vaginal bleeding Condition: Stable Prescriptions: No Action escitalopram oxalate [Lexapro] 10 mg tablet 10 mg PO DAILY pantoprazole [Protonix] 20 mg tablet,delayed release (DR/EC) 20 mg PO DAILY Classic 28 mg iron- 800 mcg tablet PO Discharge Orders: Discharge ED (Routine); Ordered 02/25/24 Ordered By: Tiff Yan Discharge Diet: Usual diet Discharge Activity: Increase activity as tolerated Patient Instructions: Miscarriage (ED) Coding Level of Care Code ED Instructional Design Specialist for Kevin Iqbal
[2024-02-25 19:12] VITALS: BP 128/86; PULSE 69; RESP 14; TEMP 36.6; O2SAT 100
== END 2024-02-25 19:13 | disposition home or self-care (01) ==
PROVIDERS: Physician Assistant; Emergency Provider Emergency Medicine
DX: O03.9 Complete or unspecified spontaneous abortion without complication (principal)
CPT/HCPCS: 80053; 84702; 85025; 99283

== ENCOUNTER → 2024-03-22 13:06 | Outpatient (BNVA) | payer OTHER, SELFPAY | PROVIDERS: Visit Provider Nurse Practitioner Women's Health | DX: O03.9 Complete or unspecified spontaneous abortion without complication (principal) | CPT/HCPCS: 84702 ==

== ENCOUNTER → 2024-03-29 09:52 | Outpatient (BNVA) | payer OTHER, SELFPAY | PROVIDERS: Visit Provider Nurse Practitioner Women's Health | DX: O02.1 Missed abortion (principal); O03.9 Complete or unspecified spontaneous abortion without complication | CPT/HCPCS: 84702; 85025 ==

== ENCOUNTER → 2024-05-30 11:59 | Outpatient (BNVA) | payer OTHER, SELFPAY | PROVIDERS: Visit Provider Nurse Practitioner Women's Health | DX: Z12.4 Encounter for screening for malignant neoplasm of cervix (principal) | CPT/HCPCS: 87624 ==

== ENCOUNTER → 2024-06-13 13:36 | Outpatient (BNVA) | payer OTHER, SELFPAY | PROVIDERS: Visit Provider Nurse Practitioner Women's Health | DX: Z32.01 Encounter for pregnancy test, result positive (principal) | CPT/HCPCS: 84144; 84702 ==

== ENCOUNTER → 2024-06-15 14:33 | Outpatient (BNVA) | payer OTHER, SELFPAY | PROVIDERS: Visit Provider Nurse Practitioner Women's Health | DX: Z32.01 Encounter for pregnancy test, result positive (principal) | CPT/HCPCS: 84702 ==

== ENCOUNTER → 2024-06-28 14:33 | Outpatient (BNVA) | payer OTHER, SELFPAY | PROVIDERS: Visit Provider Obstetrics & Gynecology | DX: Z36.87 Encounter for antenatal screening for uncertain dates (principal); O36.80X0 Pregnancy with inconclusive fetal viability, not applicable or unspecified; N83.12 Corpus luteum cyst of left ovary; R55 Syncope and collapse; Z3A.01 Less than 8 weeks gestation of pregnancy | CPT/HCPCS: 76801; 80053; 84702; 85025 ==

== ENCOUNTER 2024-07-04 17:58 | Emergency (ER) | payer OTHER, SELFPAY ==
[2024-07-04 18:08] VITALS: BP 152/88; PULSE 78; RESP 16; O2SAT 100; BMI 26.4
[2024-07-04 19:15] LABS: Basophils % 0.6 %; Eosinophils # 0.1 10^3/uL (0.0-0.8); Eosinophils % 0.8 %; Hematocrit 34.3 % (36-47); Lymphocytes # 2.1 10^3/uL (0.8-4.8); Lymphocytes % 34.4 %; Mean Corpuscular HGB Conc 33.2 g/dL (30-55); Mean Corpuscular Hemoglobin 28.4 pg (27-33); Mean Corpuscular Volume 85.3 fl (85-98); Mean Platelet Volume 11.4 fL (7.4-10.4); Monocytes # 0.3 10^3/uL (0.2-0.9); Monocytes % 4.1 %; Neutrophils # 3.69 10^3/uL (1.8-7.7); Neutrophils % 59.9 %; Nucleated Red Blood Cells % 0 %; Platelet Count 208 10^3/cmm (157-399); Red Blood Count 4.02 10^6/uL (3.85-5.65); Red Cell Distribution Width 13.3 % (12.1-15.1); White Blood Count 6.16 10^3/uL (3.29-11.43)
--- NOTE | 2024-07-04 19:30 | ED_ITS ---
HPI - 2 General: Chief complaint: Vaginal Bleeding Stated complaint: 6-7 Wks Preg\Bleeding Time Seen by Provider: 07/04/24 19:01 Source: patient Mode of arrival: ambulatory Limitations: no limitations History of Present Illness: 33-year-old female currently roughly 6 w eeks send history of miscarriages in the past. She states she has had some slight spotting over the day with some lower abdominal cramping. She denies any heavy bleeding. She is seeing her OB clinic last week had a quantitative drawn and ultrasound done then. She denies any worse improving factors. Denies any vomiting or diarrhea Associated symptoms: Deny abdominal pain, headache(s), nausea or vomiting Related Data Home Medications Medication Instructions Recorded Confirmed pantoprazole 20 mg tablet,delayed 20 mg PO DAILY 02/09/24 05/30/24 release (Protonix) vits no.126-ferrous fum tab PO 02/09/24 05/30/24 28 mg iron-folic acid 800 mcg tablet (Classic ) escitalopram oxalate 10 mg tablet 20 mg PO DAILY 03/29/24 05/30/24 (Lexapro) Previous Rx's Medication Instructions Recorded levofloxacin 500 mg tablet 500 mg PO DAILY 7 days #7 tabs 05/31/24 Allergies Allergy/AdvReac Type Severity Reaction Status Date / Time No Known Allergies Allergy Verified 05/30/24 11:15 Review of Systems 2 Const: Denies: fever(s), chills, body aches or change in appetite ENMT: Denies: throat pain or dental pain Card: Denies: chest pain Resp: Denies: dyspnea GI: Denies: abdominal pain, nausea, vomiting or diarrhea : Reports: vaginal bleeding Musc: Denies: neck pain or back pain Skin/Breast: Denies: rash Neuro: Denies: headache(s) PFSH ED 2 PFSH: Medical History Asthma with acute exacerbation Family History Denies family history of Colon cancer Ovarian cancer Diabetes Heart disease Breast cancer Hypertension Uterine cancer Thyroid disease Stroke Social History Smoking and tobacco/nicotine status: never used tobacco/nicotine Physical Exam 2 Const: COMMON NORMALS: no acute distress, patient oriented x3 and healthy appearing HENMT: COMMON NORMALS: normocephalic and atraumatic HEAD & SCALP: n ormocephalic and atraumatic Neck/C-Spine: COMMON NORMALS: full ROM and supple Chest: COMMONS NORMALS: normal inspection of the chest Resp: COMMON NORMALS: normal respiratory effort Cardio: COMMON NORMALS: regular rate RATE: regular rate GI: COMMON NORMALS: Normal to inspection, nondistended, normoactive bowel sounds present, Soft to palpation, non-tender and no masses PALPATION: Yes Soft to palpation Extremity: COMMON NORMALS: normal to inspection and full ROM Neuro: COMMON NORMALS: patient oriented x3, moves all extremities and no focal motor deficits Psych: COMMON NORMALS: mental status grossly normal, Normal thought process present and cooperative THOUGHT PROCESS: Normal thought process present Skin: COMMON NORMALS: no rashes or lesions noted and no wounds GENERAL SKIN EXAM: no rashes or lesions noted Course 2 Vital Signs: Vital signs: Vital Signs Pulse Rate 68 07/04/24 19:45 Respiratory Rate 16 07/04/24 18:08 Blood Pressure 141/82 07/04/24 19:45 Pulse Oximetry 100 07/04/24 19:45 Oxygen Delivery Me thod Room Air 07/04/24 19:45 MDM - OB/Uterine Contractions Medical Decision Making Patient presents here with threatened miscarriage her quantitative is increased she had a formal ultrasound last week that showed no signs of ectopic at that time and recommended ultrasound in 2 weeks she is scheduled for 1 next through [facility]. She has no heavy bleeding no severe abdominal pain no signs of ectopic here she does not require formal ultrasound here at this time inform her she needs to call the women's clinic for her follow-up follow-up as scheduled she is to return if she has worsening pain or worsening bleeding she understands and agrees to plan Medical Records I reviewed the patient's medical records. Lab Data I reviewed the patient's lab results. 07/04/24 18:56 Laboratory Results WBC 6.16 10^3/uL (3.29-11.43) 07/04/24 18:56 RBC 4.02 10^6/uL (3.85-5.65) 07/04/24 18:56 Hgb 11.40 g/dL (11.27-16.99) 07/04/24 18:56 Hct 34.3 % (36-47) L 07/04/24 18:56 MCV 85.3 fl (85-98) 07/04/24 18:56 MCH 28.4 pg (27-33) 07/04/24 18:56 MCHC 33.2 g/dL (30-55) 07/04/24 18:56 RDW 13.3 % (12.1-15.1) 07/04/24 18:56 Plt Count 208 10^3/cmm (157-399) 07/04/24 18:56 MPV 11.4 fL (7.4-10.4) H 07/04/24 18:56 Neut % (Auto) 59.9 % 07/04/24 18:56 Lymph % (Auto) 34.4 % 07/04/24 18:56 [place] % (Auto) 4.1 % 07/04/24 18:56 Eos % (Auto) 0.8 % 07/04/24 18:56 Baso % (Auto) 0.6 % 07/04/24 18:56 Neut # (Auto) 3.69 10^3/uL (1.8-7.7) 07/04/24 18:56 Lymph # (Auto) 2.1 10^3/uL (0.8-4.8) 07/04/24 18:56 [place] # (Auto) 0.3 10^3/uL (0.2-0.9) 07/04/24 18:56 Eos # (Auto) 0.1 10^3/uL (0.0-0.8) 07/04/24 18:56 Baso # (Auto) 0.0 10^3/uL (0.0-0.1) 07/04/24 18:56 Nucleated RBC % (auto) 0 % 07/04/24 18:56 Nucleated RBCs # 0.0 /100WBC 07/04/24 18:56 Ser , Semi-Qnt 8857.00 mIU/mL 07/04/24 18:56 No radiology studies performed this visit Discharge Plan Discharge Patient Disposition: Home Clinical Impression: Threatened miscarriage Condition: Stable Prescriptions: No Action pantoprazole [Protonix] 20 mg tablet,delayed release (DR/EC) 20 mg PO DAILY Classic 28 mg iron- 800 mcg tablet PO escitalopram oxalate [Lexapro] 10 mg tablet 20 mg PO DAILY levofloxacin 500 mg tablet 500 mg PO DAILY 7 Days Qty: 7 0RF Discharge Orders: Discharge ED (Routine); Ordered 07/04/24 Ordered By: Fermin Muhammad Discharge Diet: Advance as tolerated Discharge Activity: Resume usual activity Patient Instructions: Threatened Miscarriage (ED) Coding Level of Care Code ED Mining Engineer for Kevin Iqbal
[2024-07-04 19:45] VITALS: BP 141/82; PULSE 68; O2SAT 100
[2024-07-04 20:23] VITALS: BP 126/65; PULSE 69; O2SAT 95
== END 2024-07-04 20:24 | disposition home or self-care (01) ==
PROVIDERS: Emergency Provider Emergency Medicine
DX: O20.0 Threatened abortion (principal); Z3A.01 Less than 8 weeks gestation of pregnancy
CPT/HCPCS: 36415; 84702; 85025; 99283

== ENCOUNTER → 2024-07-06 09:07 | Outpatient (BNVA) | payer OTHER, SELFPAY | PROVIDERS: Visit Provider Nurse Practitioner Women's Health | DX: O20.0 Threatened abortion (principal) | CPT/HCPCS: 84702 ==

== ENCOUNTER → 2024-07-11 13:19 | Outpatient (BNVA) | payer OTHER, SELFPAY | PROVIDERS: Visit Provider Nurse Practitioner Women's Health | DX: Z36.87 Encounter for antenatal screening for uncertain dates (principal); Z3A.01 Less than 8 weeks gestation of pregnancy | CPT/HCPCS: 76817 ==

== ENCOUNTER → 2024-08-03 15:11 | Outpatient (BNVA) | payer OTHER, SELFPAY | PROVIDERS: Visit Provider Nurse Practitioner Women's Health | DX: O03.9 Complete or unspecified spontaneous abortion without complication (principal) | CPT/HCPCS: 84702 ==

== ENCOUNTER → 2024-08-07 13:57 | Outpatient (BNVA) | payer OTHER, SELFPAY | PROVIDERS: Visit Provider Nurse Practitioner Women's Health | DX: O03.9 Complete or unspecified spontaneous abortion without complication (principal) | CPT/HCPCS: 82607; 82728; 82746; 83550; 85025 ==

== ENCOUNTER 2024-08-23 08:00 | Oncology outpatient (recurring) (ONCR) | payer OTHER, SELFPAY ==
[2024-08-21 08:37] VITALS: BP 120/76; PULSE 62; RESP 16; TEMP 36.3; O2SAT 99
[2024-08-21] MEDS: iron sucrose 200 MG in sodium chloride 0.9% (100 ml) 100 ML 220 MG IV (08:42)
[2024-08-21 09:24] VITALS: BP 124/81; PULSE 69; RESP 18; TEMP 36.6
[2024-08-23 08:49] VITALS: BP 130/79; PULSE 61; RESP 16; TEMP 36.8; O2SAT 100
[2024-08-23] MEDS: iron sucrose 200 MG in sodium chloride 0.9% (100 ml) 100 ML 220 MG IV (09:02)
[2024-08-23 09:49] VITALS: BP 108/68; PULSE 84; RESP 16; TEMP 36.9; O2SAT 99
== END 2024-08-24 23:59 | disposition home or self-care (01) ==
PROVIDERS: Visit Provider Nurse Practitioner Women's Health
DX: D50.8 Other iron deficiency anemias (principal); Z79.899 Other long term (current) drug therapy; Z53.9 Procedure and treatment not carried out, unspecified reason
CPT/HCPCS: 96365; J1756

== ENCOUNTER 2024-09-01 08:00 | Oncology outpatient (recurring) (ONCR) | payer OTHER, SELFPAY ==
[2024-08-25 08:26] VITALS: BP 124/68; PULSE 68; RESP 16; TEMP 36.8; O2SAT 99
[2024-08-25] MEDS: iron sucrose 200 MG in sodium chloride 0.9% (100 ml) 100 ML 220 MG IV (08:28)
[2024-08-25 09:06] VITALS: BP 126/80; PULSE 71; O2SAT 100
[2024-08-28] MEDS: iron sucrose 200 MG in sodium chloride 0.9% (100 ml) 100 ML 220 MG IV (15:37)
[2024-08-28 15:39] VITALS: BP 129/81; PULSE 88; RESP 16; TEMP 36.7; O2SAT 98
[2024-08-28 16:05] VITALS: BP 126/86; PULSE 65; RESP 16; TEMP 36.5; O2SAT 99
[2024-09-01 08:22] VITALS: BP 116/79; PULSE 73; RESP 16; TEMP 36.2; O2SAT 99
[2024-09-01] MEDS: iron sucrose 200 MG in sodium chloride 0.9% (100 ml) 100 ML 220 MG IV (08:30)
[2024-09-01 09:05] VITALS: BP 122/64; PULSE 60; RESP 16; TEMP 36.6; O2SAT 96
== END 2024-09-23 23:59 | disposition home or self-care (01) ==
PROVIDERS: Visit Provider Nurse Practitioner Women's Health
DX: Z79.899 Other long term (current) drug therapy (principal); Z53.9 Procedure and treatment not carried out, unspecified reason; D50.9 Iron deficiency anemia, unspecified
CPT/HCPCS: 96365; J1756

== ENCOUNTER → 2024-10-02 13:20 | Outpatient (BNVA) | payer OTHER, SELFPAY | PROVIDERS: Visit Provider Nurse Practitioner Women's Health | DX: D50.9 Iron deficiency anemia, unspecified (principal) | CPT/HCPCS: 82728; 83550; 85025 ==